=== PATIENT | female | born 1995 | race Caucasian/White ===

== ENCOUNTER 2017-10-27 19:25 | Emergency (ER) | payer SELFPAY ==
[~2017-10-27] VITALS: Ht 157.5 cm; Wt 57.5 kg
[2017-10-27 19:30] VITALS: BP 133/63; PULSE 90; RESP 18; TEMP 98.5; O2SAT 97
[2017-10-27 19:37] VITALS: BP 117/60; PULSE 77; RESP 18; TEMP 98; O2SAT 99
[2017-10-27] MEDS ORDERED: SODIUM CHLOR 0.9% 1000 ML INJ 1,000 ML IV ONE ×3 (19:42→22:30)
[2017-10-27] MEDS ORDERED: SODIUM CHLORIDE 0.9% FLUSH 10 ML FLUSH IVF PRN (19:45)
[2017-10-27] MEDS ORDERED: ONDANSETRON HCL 4 MG/2 ML VIAL IVP ONE (19:45)
[2017-10-27 19:58] LABS: BILIRUBIN, URINE NEG (NEG); BLOOD, URINE NEG (NEG); GLUCOSE,URINE NEG (NEG); KETONE, URINE 80 OR GREATER mg/dL (NEG); NITRITE,URINE NEG (NEG); PH, URINE 6.5 (5.0-8.5); URINE COLOR YELLOW (YELLW/STRAW); URINE LEUKOCYTE ESTERASE NEG (NEG)
[2017-10-27 19:58] LABS: AUTOMATED NEUTROPHIL # 6.7 TH/MM3 (1.8-7.7); BASOPHIL % 0.3 % (0.0-2.0); EOSINOPHIL % 0.2 % (0.0-4.0); HEMOGLOBIN 12.8 GM/DL (11.6-15.3); LYMPH % 17.8 % (9.0-44.0); LYMPHOCYTE # 1.6 TH/MM3 (1.0-4.8); MEAN CELL VOLUME 90.6 FL (80.0-100.0); MEAN CORPUSCULAR HEMOGLOBIN 31.4 PG (27.0-34.0); MEAN CORPUSCULAR HGB CONC 34.6 % (32.0-36.0); MEAN PLATELET VOLUME 7.3 FL (7.0-11.0); MONO % 6.4 % (0.0-8.0); MONOCYTE # 0.6 TH/MM3 (0-0.9); NEUT % 75.3 % (16.0-70.0); PLATELET COUNT 308 TH/MM3 (150-450); RED BLOOD COUNT 4.09 MIL/MM3 (4.00-5.30); RED CELL DISTRIBUTION WIDTH 12.4 % (11.6-17.2); WHITE BLOOD COUNT 8.9 TH/MM3 (4.0-11.0)
[2017-10-27 20:06] LABS: CHLORIDE 104 MEQ/L (98-107); SODIUM (NA) 134 MEQ/L (136-145)
[2017-10-27 20:09] LABS: ALBUMIN 3.4 GM/DL (3.4-5.0); BICARBONATE 22.1 MEQ/L (21.0-32.0); CALCIUM 8.6 MG/DL (8.5-10.1)
[2017-10-27 20:10] LABS: BLOOD UREA NITROGEN 8 MG/DL (7-18); GLUCOSE,RANDOM 107 MG/DL (74-106)
[2017-10-27 20:12] LABS: ALT (GPT) 9 U/L (9-42)
[2017-10-27 20:13] LABS: AST (GOT) 12 U/L (16-38); CREATININE 0.48 MG/DL (0.50-1.00); GLOMERULAR FILTRATION RATE 165 ML/MIN (>89)
[2017-10-27 20:14] LABS: TOTAL BILIRUBIN ADULT 0.7 MG/DL (0.2-1.0); TOTAL PROTEIN 7.4 GM/DL (6.4-8.2)
[2017-10-27 20:16] LABS: ALKALINE PHOSPHATASE 58 U/L (45-117)
[2017-10-27 20:25] LABS: BACTERIA, URINE FEW /hpf; MUCUS URINE MOD /lpf (OCC); SQUAMOUS EPITHELIAL CELL URINE > 8 /hpf (0-5)
[2017-10-27 20:26] LABS: AMORPHOUS SEDIMENT, URINE MOD
[2017-10-27] MEDS ORDERED: ONDANSETRON HCL 4 MG/2 ML VIAL IV PUSH ONE (22:30)
[2017-10-27 22:45] VITALS: BP 120/55; PULSE 77; RESP 16; O2SAT 100
[2017-10-27] MEDS ORDERED: ZOFR4TAB3 SL (22:51)
--- NOTE | 2017-10-27 22:51 | PD ---
HPI . GI complaint Chief Complaint: GI Complaint Time Seen by Provider: 19:37 Travel History International Travel<30 days: No Contact w/Intl Traveler<30days: No Traveled to known affect area: No History of Present Illness HPI 22-year-old female who is approximately 60 weeks by dates, , who presents with frequent vomiting, having difficulty keeping fluids down, feeling quite nauseous. Patient denies any fever chills sweats, has no abdominal pain no vaginal bleeding or discharge, denies any dysuria urgency frequency. This is a wanted . PFSH Past Medical History Narrative Medical No significant past medical history Medical History: Denies Significant Hx Diminished Hearing: No Tetanus Vaccination: < 5 Years Influenza Vaccination: No ?: Past Surgical History Surgical History: No Previous Surgery Oral Surgery: Yes (teeth, jaw) Social History Alcohol Use: No Tobacco Use: No Substance Use: No Allergies-Medications (Allergen,Severity, Reaction): Coded Allergies: No Known Allergies (Verified Allergy, Unknown, 10/27/17) Reported Meds & Prescriptions Reported Meds & Active Scripts Active No Active Prescriptions or Reported Medications Narrative Medication Allergies and medications reviewed Review of Systems Except as stated in HPI: all other systems reviewed are Neg General / Constitutional: No: Fever Eyes: No: Visual changes HENT: No: Headaches Cardiovascular: No: Chest Pain or Discomfort Respiratory: No: Shortness of Breath Gastrointestinal: Positive: Nausea, Vomiting, No: Abdominal Pain Genitourinary: No: Urgency, Frequency, Dysuria, Hematuria, Discharge, Vaginal Bleeding Musculoskeletal: No: Pain Skin: No Rash Neurologic: No: Weakness Psychiatric: No: Depression Endocrine: No: Polydipsia Hematologic/Lymphatic: No: Easy Bruising Physical Exam Narrative GENERAL: Awake alert oriented 3 no acute distress vital signs afebrile normotensive SKIN: Warm and dry. Color is normal no diaphoresis cyanosis or pallor HEAD: Atraumatic. Normocephalic. EYES: Pupils equal and round. No scleral icterus. No injection or drainage. ENT: No nasal bleeding or discharge. Mucous membranes pink and moist. NECK: Trachea midline. No JVD. Supple nontender CARDIOVASCULAR: Regular rate and rhythm. S1-S2 no murmurs rubs gallops RESPIRATORY: No accessory muscle use. Clear to auscultation. Breath sounds equal bilaterally. GASTROINTESTINAL: Abdomen soft, non-tender, nondistended. Hepatic and splenic margins not palpable. MUSCULOSKELETAL: Extremities without clubbing, cyanosis, or edema. No obvious deformities. NEUROLOGICAL: Awake and alert. No obvious focal deficits PSYCHIATRIC: Appropriate mood and affect; insight and judgment normal. Data Data Last Documented VS Vital Signs Date Time Temp Pulse Resp B/P (MAP) Pulse Ox O2 Delivery O2 Flow Rate FiO2 10/27/17 19:37 98.0 77 18 117/60 (79) 99 Orders Orders Urinalysis - C+S If Indicated (10/27/17 19:36) Ed Urine Pregnancytest Poc (10/27/17 19:36) Beta Hcg (Quant/Titer) (10/27/17 19:42) Complete Blood Count With Diff (10/27/17 19:42) Comprehensive Metabolic Panel (10/27/17 19:42) Iv Access Insert/Monitor (10/27/17 19:42) Sodium Chloride 0.9% Flush (Ns Flush) (10/27/17 19:45) Sodium Chlor 0.9% 1000 Ml Inj (Ns 1000 M (10/27/17 19:42) Ondansetron Inj (Zofran Inj) (10/27/17 19:45) Sodium Chlor 0.9% 1000 Ml Inj (Ns 1000 M (10/27/17 21:15) Ondansetron Inj (Zofran Inj) (10/27/17 22:30) Sodium Chlor 0.9% 1000 Ml Inj (Ns 1000 M (10/27/17 22:30) Labs Laboratory Tests Test 10/27/17 19:20 10/27/17 19:50 Urine Color YELLOW Urine Turbidity SL CLOUDY Urine pH 6.5 Urine Specific [place] 1.020 Urine Protein NEG mg/dL Urine Glucose (UA) NEG mg/dL Urine Ketones 80 OR GREATER mg/dL Urine Occult Blood NEG Urine Nitrite NEG Urine Bilirubin NEG Urine Urobilinogen 4.0 MG/DL Urine Leukocyte Esterase NEG Urine Squamous Epithelial Cells > 8 /hpf Urine Amorphous Sediment MOD Urine Bacteria FEW /hpf Urine Mucus MOD /lpf Microscopic Urinalysis Comment CULT NOT INDICATED White Blood Count 8.9 TH/MM3 Red Blood Count 4.09 MIL/MM3 Hemoglobin 12.8 GM/DL Hematocrit 37.0 % Mean Corpuscular Volume 90.6 FL Mean Corpuscular Hemoglobin 31.4 PG Mean Corpuscular Hemoglobin Concent 34.6 % Red Cell Distribution Width 12.4 % Platelet Count 308 TH/MM3 Mean Platelet Volume 7.3 FL Neutrophils (%) (Auto) 75.3 % Lymphocytes (%) (Auto) 17.8 % Monocytes (%) (Auto) 6.4 % Eosinophils (%) (Auto) 0.2 % Basophils (%) (Auto) 0.3 % Neutrophils # (Auto) 6.7 TH/MM3 Lymphocytes # (Auto) 1.6 TH/MM3 Monocytes # (Auto) 0.6 TH/MM3 Eosinophils # (Auto) 0.0 TH/MM3 Basophils # (Auto) 0.0 TH/MM3 CBC Comment DIFF FINAL Differential Comment Blood Urea Nitrogen 8 MG/DL Creatinine 0.48 MG/DL Random Glucose 107 MG/DL Total Protein 7.4 GM/DL Albumin 3.4 GM/DL Calcium Level 8.6 MG/DL Alkaline Phosphatase 58 U/L Aspartate Amino Transf (AST/SGOT) 12 U/L Alanine Aminotransferase (ALT/SGPT) 9 U/L Total Bilirubin 0.7 MG/DL Sodium Level 134 MEQ/L Potassium Level 3.6 MEQ/L Chloride Level 104 MEQ/L Carbon Dioxide Level 22.1 MEQ/L Anion Gap 8 MEQ/L Estimat Glomerular Filtration Rate 165 ML/MIN Human Chorionic Gonadotropin, Quant [id number] MIU/ML MDM Medical Decision Making Medical Screen Exam Complete: Yes Emergency Medical Condition: Yes Medical Record Reviewed: Yes Differential Diagnosis Hyperemesis gravidarum, dehydration Narrative Course Patient received 3 L IV fluids, antiemetics, felt greatly improved. Tolerating p.o. Transabdominal ultrasound performed bedside with positive IUP, positive FH , decent amount of amniotic fluid which is hypoechoic and homogeneous. No subchorionic hemorrhage or other abnormality seen. No free fluid in pelvis Diagnosis Primary Impression: Hyperemesis gravidarum Patient Instructions: General Instructions, Hyperemesis Gravidarum (ED) Additional Instructions: Drink plenty of fluids. Zofran 4 mg under the tongue dissolvable every 6-8 hours as needed for nausea/vomiting. Follow-up with your [facility], return for worsening Scripts Ondansetron Odt (Zofran Odt) 4 Mg Tab 4 MG SL Q8HR Y for Nausea/Vomiting, #30 TAB 0 Refills Prov: Adalid Willis MD 10/27/17 Disposition: 01 DISCHARGE HOME Condition: Stable Adalid Willis MD Oct 27, 2017 22:51
== END 2017-10-27 23:18 | disposition home or self-care (01) ==
LOC: PHED 19:25
DX: O21.0 Mild hyperemesis gravidarum (principal)
CPT/HCPCS: 80053; 81001; 84702; 85025; 96361; 96374; 96376; 99284; J2405; J7030